=== PATIENT | female | born 1955 | race Caucasian/White ===

== ENCOUNTER 2021-06-30 16:45 | Day surgery (SDC) | payer MEDICARE ==
[2021-06-30] MEDS ORDERED: BUPIVACAINE 0.5% VIAL IJ ONE (16:46)
[2021-06-30] MEDS ORDERED: Xylocaine 1% Vial 30 ML PF IJ ONE (16:46)
[2021-06-30] MEDS ORDERED: Depo-Medrol 40 MG/ML IM ONE (16:46)
--- NOTE | 2021-06-30 19:08 | XRAY ---
Indication: Bilateral SI joint injection. Intraoperative fluoroscopy provided for 34 seconds. 4 digital spot images submitted for interpretation demonstrates posterior needle tip projecting over the inferior left and right SI joints. Correlate with intraoperative findings/report.
--- NOTE | 2021-07-01 08:40 | XRAY ---
34 seconds fluoroscopy time in surgery for injections of both SI joints.
== END 2021-06-30 18:50 | disposition home or self-care (01) ==
LOC: SDC-PAIN 16:45
PROVIDERS: ATTEND Psychiatry & Neurology Pain Medicine
DX: M46.1 Sacroiliitis, not elsewhere classified (principal); Z79.899 Other long term (current) drug therapy
CPT/HCPCS: 64625; 72202; 77002; J1030; J2001

== ENCOUNTER 2022-03-16 12:48 | Day surgery (SDC) | payer MEDICARE ==
[2022-03-16] MEDS ORDERED: Versed 2 MG/2 ML Injection ONE (13:17)
[2022-03-16] MEDS ORDERED: Zofran 4 MG/2 ML VIAL ONE (13:24)
[2022-03-16] MEDS ORDERED: Pepcid 20 MG VIAL IV ONE (13:24)
[2022-03-16] MEDS ORDERED: DIPRIVAN 200 MG/20 ML IV ONE (14:33)
[2022-03-16] MEDS ORDERED: Lactated Ringers 1,000 ML IV ONE (14:42)
--- NOTE | 2022-03-16 15:04 | XRAY ---
21 seconds of fluoroscopy was used in surgery for bilateral SI joint injections.
--- NOTE | 2022-03-16 15:05 | XRAY ---
Indication: Bilateral SI joint injection. Intraoperative fluoroscopy provided for 21 seconds. 4 digital spot images submitted for interpretation demonstrates posterior needle tip projecting over the inferior left and right SI joint. Correlate with intraoperative findings/report.
== END 2022-03-16 15:03 | disposition home or self-care (01) ==
LOC: SDC-PAIN 12:48
PROVIDERS: ATTEND Psychiatry & Neurology Pain Medicine
DX: M46.1 Sacroiliitis, not elsewhere classified (principal); Z79.899 Other long term (current) drug therapy
CPT/HCPCS: 27096; 72202; 77002; G0260; J2250; J2405; J2704